=== PATIENT | female | born 1985 | race Caucasian/White ===

== ENCOUNTER 2017-05-02 10:37 | Emergency (ER) | payer OTHER ==
[2017-05-02 10:45] VITALS: BMI 40.7
[2017-05-02] MEDS ORDERED: SODIUM CHLORIDE 1,000 ML IV STA (10:51)
--- NOTE | 2017-05-02 10:52 | PDOC ---
History of Present Illness - General Chief Complaint: Pain Stated Complaint: ABD PAIN Time Seen by Provider: 05/02/17 10:50 History Source: Patient Exam Limitations: No Limitations - History of Present Illness Travel History: No Initial Comments: 05/02/17 10:52 31 yr female with c/o fever, abd pain, nvd started at 4am. Pt's son with same symptoms this past week. Pt has no past medical history 2 c-sections surgical history. Denies foreign travel, last meal was salad and grilled chicken. 05/02/17 11:10 05/02/17 11:10 Timing/Duration: reports: intermittent Quality: reports: moderate, aching, stabbing Abdominal Pain Onset Location: reports: LUQ Pain Radiation: reports: LLQ Activities at Onset: reports: none Treatment Prior to Arrive: worse with: analgesics, antacids, cold pack, heat, laxative, enema, other Past History - Past Medical History Allergies/Adverse Reactions: Allergies Allergy/AdvReac Type Severity Reaction Status Date / Time No Known Allergies Allergy Verified 05/02/17 10:45 Home Medications: Ambulatory Orders Ondansetron [Zofran Odt -] 4 mg SL TID PRN #12 od.tablet 05/02/17 COPD: No - Reproductive History LMP Normal: Yes Is Patient Now?: No - Suicide/Smoking/Psychosocial Hx Smoking History: Never smoked Abd/GI Specific PMHX - Complaint Specific PMHX Colitis: No Diverticulitis: No Gall Bladder Disease: No GERD: No Hepatitis: No Irritable Bowel Synd (IBS): No Pancreatitis: No GI Ulcer Disease: No Review of Systems - Review of Systems Able to Perform ROS?: Yes Is the patient limited Tamazight proficient: No Constitutional: Yes: Symptoms Reported ABD/GI: Yes: Symptoms Reported *Physical Exam - Vital Signs Last Vital Signs Temp Pulse Resp BP Pulse Ox 100.3 F H 137 H 20 135/82 97 05/02/17 10:42 05/02/17 10:42 05/02/17 10:42 05/02/17 10:42 05/02/17 10:42 - Physical Exam General Appearance: Yes: Nourished, Appropriately Dressed, Obese HEENT: positive: EOMI, KAYLA, Normal ENT Inspection, TMs Normal, Pharynx Normal Neck: positive: Supple Respiratory/Chest: positive: Lungs Clear, Normal Breath Sounds. negative: Chest Tender Cardiovascular: positive: Regular Rhythm, Regular Rate, Tachycardia Gastrointestinal/Abdominal: positive: Soft, Increased Bowel Sounds, Tenderness ( mild tenderness to the left side of the abdomen). negative: Tender, Distended, Guarding, Rebound Rectal Exam: positive: deferred Musculoskeletal: positive: Normal Inspection Extremity: positive: Normal Capillary Refill, Normal Inspection, Normal Range of Motion Integumentary: positive: Normal Color, Dry, Warm Neurologic: positive: Fully Oriented, Alert, Normal Mood/Affect, Normal Response , Motor Strength 07/24 ED Treatment Course - LABORATORY CBC & Chemistry Diagram: 05/02/17 11:10 05/02/17 11:10 Medical Decision Making - Medical Decision Making 05/02/17 11:13 cc: fever , nvd abd pain left side localised started at 4am son had same symptoms 4 days ago has improved pt denies back or chest pain no urinary complaints will check labs,, IVF, zofran, pepcid most likely viral gastroenteritis will r/o UTI 05/02/17 13:11 pt states her nausea has improved, c/o cramping discomfort. will give reglan now *DC/Admit/Observation/Transfer Diagnosis at time of Disposition: Gastroenteritis and colitis, viral - Discharge Dispostion Disposition: HOME Condition at time of disposition: Improved - Prescriptions Prescriptions: Ondansetron [Zofran Odt -] 4 mg SL TID PRN #12 od.tablet PRN Reason: Nausea And/Or Vomiting - Referrals Referrals: Dick Newton MD [Primary Care Provider] - - Patient Instructions Additional Instructions: lots of clear fluids bland diet as tolerated jello, broth , dry toast dry crackers, small meals at a time take the zofran as needed for any nausea and vomiting follow with your doctor in 1-2 days return to ER for any worsening symptoms, bloody diarrhea or bloody vomitus or any other concerns - Post Discharge Activity
[2017-05-02] MEDS ORDERED: ONDANSETRON 4 MG/2 ML VIAL IVPB ONE (11:08)
[2017-05-02] MEDS ORDERED: FAMOTIDINE IV 20 MG/12 ML VIAL IVPUSH STA (11:09)
[2017-05-02] MEDS ORDERED: ACETAMINOPHEN 500 MG TABLET (FP) PO ONE (11:10)
[2017-05-02] MEDS ORDERED: FAMOTIDINE 20 MG/50 ML IVPB 20 MG/50 ML MG IVPB ONE (11:16)
[2017-05-02] MEDS ORDERED: ONDANSETRON 4 MG/2 ML VIAL ONE (11:16)
[2017-05-02] MEDS ORDERED: ACETAMINOPHEN 500 MG TABLET (FP) ONE (11:19)
[2017-05-02 11:20] LABS: BASO % 0.2 % (0-2.0); HEMATOCRIT 39.3 % (32.4-45.2); HEMOGLOBIN 12.5 GM/dL (10.7-15.3); LYMPH % 5.2 % (8-40); MCH 26.3 pg (25.7-33.7); MCHC 31.9 g/dl (32.0-36.0); MEAN CELL VOLUME 82.6 fl (80-96); MEAN PLT VOLUME 8.4 fl (7.5-11.1); MONO % 3.4 % (3.8-10.2); NEUT % 90.2 % (42.8-82.8); PLATELET COUNT 236 K/MM3 (134-434); RBC 4.75 M/mm3 (3.60-5.2); RDW 13.7 % (11.6-15.6); WHITE BLOOD COUNT 9.1 K/mm3 (4.0-10.0)
[2017-05-02 11:46] LABS: ALBUMIN 3.5 g/dl (3.4-5.0); ALK PHOS 102 U/L (45-117); AMYLASE 64 U/L (25-115); ANION GAP 6 (8-16); BILIRUBIN,TOTAL 0.4 mg/dL (0.2-1.0); BLOOD UREA NITROGEN 18 mg/dL (7-18); CALCIUM 8.5 mg/dL (8.5-10.1); CHLORIDE 105 mmol/L (98-107); CO2 26 mmol/L (21-32); CREATININE 0.7 mg/dL (0.55-1.02); GLUCOSE,RANDOM 101 mg/dL (74-106); LIPASE 117 U/L (73-393); POTASSIUM 4.7 mmol/L (3.5-5.1); SGOT/AST 14 U/L (15-37); SGPT/ALT 23 U/L (12-78); SODIUM 137 mmol/L (136-145); TOT PROT 7.9 g/dl (6.4-8.2)
[2017-05-02 12:18] LABS: HCG,QUALITATIVE URINE NEGATIVE; URINE APPEARANCE CLEAR; URINE BILIRUBIN NEGATIVE (NEGATIVE); URINE BLOOD NEGATIVE (NEGATIVE); URINE COLOR STRAW; URINE GLUCOSE (UA) NEGATIVE (NEGATIVE); URINE KETONE NEGATIVE (NEGATIVE); URINE LEUK ESTERASE TRACE (NEGATIVE); URINE NITRITE NEGATIVE (NEGATIVE); URINE PROTEIN NEGATIVE (NEGATIVE); URINE UROBILINOGEN NEGATIVE mg/dL (0.2-1.0)
[2017-05-02 12:21] LABS: EPI CELLS RARE /HPF (FEW); URINE BACTERIA RARE /hpf (NONE SEEN); URINE MUCUS RARE
[2017-05-02] MEDS ORDERED: METOCLOPRAMIDE HCL INJECTION 10 MG/2 ML VIAL IVPUSH ONE (12:57)
[2017-05-02] MEDS ORDERED: METOCLOPRAMIDE HCL INJECTION 10 MG/2 ML VIAL ONE (13:05)
[2017-05-02 13:45] VITALS: TEMP 99.3
[2017-05-02 13:46] VITALS: BP 119/89; PULSE 94
== END 2017-05-02 13:46 | disposition home or self-care (01) ==
LOC: JER 10:37
PROC: 3E0337Z Introduction of Electrolytic and Water Balance Substance into Peripheral Vein, Percutaneous Approach (ICD-10-PCS; principal; 2017-05-02)
PROC: 3E033GC Introduction of Other Therapeutic Substance into Peripheral Vein, Percutaneous Approach (ICD-10-PCS; 2017-05-02)
PROC: 3E033GC Introduction of Other Therapeutic Substance into Peripheral Vein, Percutaneous Approach (ICD-10-PCS; 2017-05-02)
PROC: 3E033GC Introduction of Other Therapeutic Substance into Peripheral Vein, Percutaneous Approach (ICD-10-PCS; 2017-05-02)
DX: A08.4 Viral intestinal infection, unspecified (principal); B97.89 Other viral agents as the cause of diseases classified elsewhere
CPT/HCPCS: 36415; 80053; 81003; 81015; 82150; 83690; 84703; 85025; 96361; 96374; 96375; 99282-25

== ENCOUNTER 2019-06-16 21:51 | Emergency (ER) | payer OTHER ==
[2019-06-16 21:59] VITALS: BMI 41.6
--- NOTE | 2019-06-16 23:25 | PDOC ---
History of Present Illness - General Chief Complaint: Pain Stated Complaint: ABD PAIN Time Seen by Provider: 06/16/19 23:25 History Source: Patient - History of Present Illness Initial Comments: 06/16/19 23:37 Ms. Javed is a 33 y/o woman w/hx h. pylori p/w one day of abdominal pain. She reports that the pain began today Past History - Past Medical History Allergies/Adverse Reactions: Allergies Allergy/AdvReac Type Severity Reaction Status Date / Time No Known Allergies Allergy Verified 06/16/19 21:59 Home Medications: Ambulatory Orders Ondansetron [Zofran Odt -] 4 mg SL TID PRN #12 od.tablet 05/02/17 Omeprazole 20 mg PO DAILY #30 capsule. 06/17/19 COPD: No GI Disorders: Yes (h pylore) - Psycho Social/Smoking Cessation Hx Smoking History: Never smoked *Physical Exam - Vital Signs Last Vital Signs Temp Pulse Resp BP Pulse Ox 99.2 F 89 18 129/82 99 06/16/19 21:56 06/16/19 21:56 06/16/19 21:56 06/16/19 21:56 06/16/19 21:56 ED Treatment Course - LABORATORY CBC & Chemistry Diagram: 06/17/19 00:35 06/17/19 00:35 Discharge - Discharge Information Problems reviewed: Yes Clinical Impression/Diagnosis: GERD (gastroesophageal reflux disease) Qualifiers: Esophagitis presence: without esophagitis Qualified Code(s): K21.9 - Gastro- esophageal reflux disease without esophagitis Condition: Stable Disposition: HOME - Admission No - Additional Discharge Information Prescriptions: Omeprazole 20 mg PO DAILY #30 capsule.dr - Follow up/Referral Referrals: Dick Newton MD [Primary Care Provider] - Kevin Sevilla DO [Staff Physician] - Amol Martinez MD [Staff Physician] - - Patient Discharge Instructions Patient Printed Discharge Instructions: DI for Gastroesophageal Reflux Disease (GERD) Additional Instructions: Usted fue evaluada en la ayah de urgencias por dolor abdominal, nauseas. Li sintomas resolvieron con medicamento. Li niveles de raquel estaban normales. Por favor ve a erazo doctor de cabezera lo mas pronto posible, en 2-3 kaye. Estamos dando sagar para un gastroenterologo (doctor de los intestinos). Por favor liana sagar con ellos lo mas pronto posible. Print Language: DANISH - Post Discharge Activity
--- NOTE | 2019-06-16 23:27 | PDOC ---
Attending Attestation - Resident Resident Name: Robin Hathaway - ED Attending Attestation I have performed the following: I have examined & evaluated the patient, The case was reviewed & discussed with the resident, I agree w/resident's findings & plan - HPI HPI: 06/16/19 23:40 Pt has LUQ pain N/Diarrhea; she has a hx of H pylori. - Physicial Exam PE: 06/17/19 02:16 Afebrile VSS; NAD minimal epigastric painl no erbound and no guarding heart [id number] lungs CTAb Neuro intact. - Medical Decision Making 06/17/19 02:18 Home with opmeprazole. 06/17/19 02:19 CXR clear Discharge - Discharge Information Problems reviewed: Yes Clinical Impression/Diagnosis: GERD (gastroesophageal reflux disease) Qualifiers: Esophagitis presence: without esophagitis Qualified Code(s): K21.9 - Gastro- esophageal reflux disease without esophagitis Condition: Stable Disposition: HOME - Additional Discharge Information Prescriptions: Omeprazole 20 mg PO DAILY #30 capsule.dr - Follow up/Referral Referrals: Kevin Sevilla DO [Staff Physician] - Amlo Martinez MD [Staff Physician] - Dick Newton MD [Primary Care Provider] - - Patient Discharge Instructions Patient Printed Discharge Instructions: DI for Gastroesophageal Reflux Disease (GERD) Additional Instructions: Usted fue evaluada en la ayah de urgencias por dolor abdominal, nauseas. Li sintomas resolvieron con medicamento. Li niveles de raquel estaban normales. Por favor ve a erazo doctor de cabezera lo mas pronto posible, en 2-3 kaye. Estamos dando sagar para un gastroenterologo (doctor de los intestinos). Por favor liana sagar con ellos lo mas pronto posible. Print Language: CZECH - Post Discharge Activity
[2019-06-16] MEDS ORDERED: ACETAMINOPHEN 1000 MG/100 ML VIAL (NON FORMULARY) IVPB ONE (23:34)
[2019-06-16] MEDS ORDERED: METOCLOPRAMIDE HCL INJECTION 10 MG/2 ML VIAL IVPUSH ONE (23:34)
[2019-06-16] MEDS ORDERED: MAG HYDROX/AL HYDROX/SIMETH -MYLANTA- ORAL SUSPENSION PO ONE (23:34)
[2019-06-16] MEDS ORDERED: FAMOTIDINE 20 MG/50 ML IVPB 20 MG/50 ML MG IVPB ONE (23:34)
[2019-06-17] MEDS ORDERED: ACETAMINOPHEN INJECTION 100 ML IVPB ONE (00:28)
[2019-06-17] MEDS ORDERED: METOCLOPRAMIDE HCL INJECTION 10 MG/2 ML VIAL ONE (00:28)
[2019-06-17] MEDS ORDERED: MAG HYDROX/AL HYDROX/SIMETH 30 ML UNIT-DOSE CUP ONE (00:29)
[2019-06-17] MEDS ORDERED: FAMOTIDINE 20 MG/50 ML IVPB 20 MG/50 ML MG IVPB ONE (00:29)
[2019-06-17 01:13] LABS: BASO % 0.4 % (0-2.0); EOS % 2.3 % (0-4.5); HEMOGLOBIN 14.1 GM/dL (10.7-15.3); LYMPH % 34.2 % (8-40); MCH 30.1 pg (25.7-33.7); MCHC 33.6 g/dl (32.0-36.0); MEAN CELL VOLUME 89.7 fl (80-96); MEAN PLT VOLUME 9.5 fl (7.5-11.1); NEUT % 57.1 % (42.8-82.8); PLATELET COUNT 258 K/MM3 (134-434); RBC 4.68 M/mm3 (3.60-5.2); RDW 13.4 % (11.6-15.6); WHITE BLOOD COUNT 6.4 K/mm3 (4.0-10.0)
[2019-06-17 01:35] LABS: INR 1.1 (0.83-1.09)
[2019-06-17 01:36] LABS: EPI CELLS 13 /uL (0-25.1); HYALINE CASTS 0 /uL (0-3.1); URINE APPEARANCE CLEAR; URINE BACTERIA 472 /uL (0-1359); URINE BILIRUBIN NEGATIVE (NEGATIVE); URINE COLOR YELLOW; URINE GLUCOSE (UA) NEGATIVE (NEGATIVE); URINE KETONE NEGATIVE (NEGATIVE); URINE LEUK ESTERASE NEGATIVE (NEGATIVE); URINE NITRITE NEGATIVE (NEGATIVE); URINE PROTEIN NEGATIVE (NEGATIVE); URINE RBC 4 /uL (0-23.9); URINE UROBILINOGEN 0.2 mg/dL (0.2-1.0); URINE WBC 11 /uL (0-25.8)
[2019-06-17 01:50] LABS: ALBUMIN 3.9 g/dl (3.4-5.0); ALK PHOS 87 U/L (45-117); ANION GAP 6 MMOL/L (8-16); BILIRUBIN,TOTAL 0.5 mg/dL (0.2-1); BLOOD UREA NITROGEN 11.6 mg/dL (7-18); CALCIUM 8.7 mg/dL (8.5-10.1); CHLORIDE 109 mmol/L (98-107); CO2 27 mmol/L (21-32); CREATININE 0.8 mg/dL (0.55-1.3); GLUCOSE,RANDOM 80 mg/dL (74-106); LIPASE 79 U/L (73-393); POTASSIUM 3.8 mmol/L (3.5-5.1); SGOT/AST 71 U/L (15-37); SGPT/ALT 119 U/L (13-61); SODIUM 141 mmol/L (136-145); TOT PROT 8.4 g/dl (6.4-8.2)
[2019-06-17 02:24] VITALS: BP 105/64; PULSE 74; TEMP 98.2
[2019-06-17 03:14] LABS: ACTIVATED PTT 36.2 SECONDS (25.2-36.5)
== END 2019-06-17 02:10 | disposition home or self-care (01) ==
LOC: JER 21:51
DX: K21.9 Gastro-esophageal reflux disease without esophagitis (principal)
CPT/HCPCS: 36415; 71046-TC-FY; 80053; 81003; 82550; 83690; 84484; 84703; 85025; 85610; 85730; 87086; 99284-25; J0131

== ENCOUNTER 2022-01-20 19:04 | Emergency (ER) | payer OTHER ==
[2022-01-20 19:42] VITALS: TEMP 98.1; BMI 47.1
[2022-01-20 20:22] LABS: BASO % 0.5 % (0-2.0); EOS % 1.8 % (0-4.5); HEMATOCRIT 38.4 % (32.4-45.2); HEMOGLOBIN 12.8 GM/dL (10.7-15.3); LYMPH % 24.2 % (8-40); MCHC 33.3 g/dl (32.0-36.0); MEAN CELL VOLUME 86.9 fl (80-96); MEAN PLT VOLUME 8.8 fl (7.5-11.1); NEUT % 68.5 % (42.8-82.8); PLATELET COUNT 291 10^3/uL (134-434); RBC 4.42 M/mm3 (3.60-5.2); RDW 13.4 % (11.6-15.6); WHITE BLOOD COUNT 8.4 K/mm3 (4.0-10.0)
[2022-01-20 20:54] LABS: ALBUMIN 3.3 g/dl (3.4-5.0); BLOOD UREA NITROGEN 17.1 mg/dL (7-18); CALCIUM 8.5 mg/dL (8.5-10.1); MAGNESIUM 2.1 mg/dL (1.8-2.4)
[2022-01-20 20:57] LABS: CREATININE 0.8 mg/dL (0.55-1.3)
[2022-01-20 20:59] LABS: BILIRUBIN,TOTAL 0.3 mg/dL (0.2-1); TOT PROT 7.2 g/dl (6.4-8.2)
[2022-01-20 21:25] VITALS: BP 128/76; PULSE 85; RESP 18
== END 2022-01-20 21:39 | disposition home or self-care (01) ==
LOC: JER 19:04
DX: F41.9 Anxiety disorder, unspecified (principal)
CPT/HCPCS: 36415; 80053; 83735; 84443; 84484; 85025; 93005; 93010; 99284-25